=== PATIENT | female | born 1930 | race Caucasian/White ===

== ENCOUNTER → 2016-06-25 | Outpatient (CLI) | payer OTHER | END | disposition home or self-care (01) | LOC: PCVCCLINIC 13:30 | PROVIDERS: ATTEND Internal Medicine Cardiovascular Disease | DX: R00.0 Tachycardia, unspecified (principal); I10 Essential (primary) hypertension; C24.9 Malignant neoplasm of biliary tract, unspecified; I35.1 Nonrheumatic aortic (valve) insufficiency; R60.9 Edema, unspecified; I47.1 Supraventricular tachycardia | CPT/HCPCS: 93005; G0463 ==